=== PATIENT | male | born 1955 | race Two or more races ===

== ENCOUNTER 2017-03-15 09:42 | Inpatient (IN) | payer MEDICARE, OTHER ==
[~2017-03-15] VITALS: Ht 170.2 cm; Wt 135.0 kg
[2017-03-15] VITALS (33 sets, daily range): BP systolic 78–128; BP diastolic 37–88; PULSE 60–72; RESP 11–23; Ht 170.2 cm; Wt 135.0 kg
--- NOTE | 2017-03-15 04:54 | HP ---
DATE OF ADMISSION: 03/15/2017 HISTORY OF PRESENT ILLNESS: The patient is a 62-year-old male who was originally seen in the office for evaluation of low back pain and going to the hip and on into the lower extremity. The patient with L2-L3 spondylosis with mechanical low back pain . Conservative management in the family of epidural injections, physical therapy, and pain management. Unfortunately, the patient has failed, his condition is getting worse, his pain has been getting more. The patient wanted something more definitive to be done. The only option left at that point was for surgical intervention in the form of L2-L3 lumbar laminectomy with fusion and instrumentation with a posterolateral and interbody fusion. The procedure was described to the patient in great detail. Complications were explained. The patient wanted to proceed with surgery. PAST MEDICAL HISTORY: Paroxysmal atrial fibrillation, hypertension. PAST SURGICAL HISTORY: Lumbar spine surgery in 2015, right hip replacement in 2013, Lap-Band surgery in 2006. ALLERGIES: NO KNOWN DRUG ALLERGIES. MEDICATIONS: Medications taken at home, please refer to chart. SOCIAL HISTORY: Denies either drugs, alcohol or tobacco. FAMILY HISTORY: Unremarkable. REVIEW OF SYSTEMS: Additional 10-point review of systems conducted and pertinent positive being as described above. PHYSICAL EXAMINATION: GENERAL APPEARANCE: The patient is awake, alert, and oriented. VITAL SIGNS: Stable. HEENT: Head is atraumatic, normocephalic. Scleral nonicteric. EOMs intact. Pupils are reactive, no cyanosis. Mouth no lesions, no bleeding. NECK: Supple. No thyromegaly, no JVD, no accessory muscle use. CARDIOVASCULAR: No JVD, no pedal edema. ABDOMEN: Soft with bowel sounds audible. NEUROLOGIC: GCS 15. Cranial nerves intact. On upper extremity examination, he moves both sides equally. On lower extremity exam on flexion and extension of lumbar spine, he has severe lower back pain. The patient also has difficulty with range of motion of the hips, as well as the knees. He has ankle flexion and extension intact on both sides. Strength is equal on both sides, sensation is intact. DATA: MRI of the lumbar spine dated 12/05/2016 shows L2-L3 spondylosis with disc herniation. ASSESSMENT AND PLAN: Recommendation is for the patient to have L2-L3 lumbar laminectomy with fusion and instrumentation. The procedure was described to the patient in great detail. Complications were explained to the patient in great detail. The patient has agreed and wants to go ahead and proceed with intervention and will be admitted to the hospital thereafter post surgery for further care and management. Dictated By: Raimundo Vaughan MD /henrietta/sadaf /Document#: [id number]
[~2017-03-15 09:42] MED LIST: BLOOD PRESSURE PO; IBUP200C11 PO
[2017-03-15] MEDS ORDERED: THROMBIN 5000 UNIT VIAL ONE ×2 (10:05→14:32)
[2017-03-15] MEDS ORDERED: POLYMYXIN/BACITRACIN 1L IRRIG ONE (10:05)
[2017-03-15] MEDS ORDERED: GELATIN SIZE 100 SPONGE ONE ×2 (10:05→14:32)
[2017-03-15] MEDS ORDERED: LIDOCAINE 0.5% (MDV) 50 ML INJ ONE (10:05)
[2017-03-15] MEDS ORDERED: BUPIVACAINE 0.5%/EPI (SDV) 10 ML INJ ONE (10:12)
[2017-03-15] MEDS ORDERED: MAXZ25 PO (10:55)
[2017-03-15] MEDS ORDERED: METO-448 PO (10:56)
[2017-03-15] MEDS ORDERED: LOSA100T7 PO (10:56)
[2017-03-15] MEDS ORDERED: LIDOCAINE 2%/EPI 30 ML INJ ONE (11:15)
[2017-03-15] MEDS ORDERED: SUCCINYLCHOLINE CHLORIDE 100 MG/5 ML SYG IV ONE (12:18)
[2017-03-15] MEDS ORDERED: GLYCOPYRROLATE 0.4 MG INJ ONE ×3 (12:18→13:10)
[2017-03-15] MEDS ORDERED: MEPERIDINE 100 MG INJ ONE (12:18)
[2017-03-15] MEDS ORDERED: PROPOFOL 20 ML ONE (12:18)
[2017-03-15] MEDS ORDERED: NEOSTIGMINE 3 MG/3 ML SYRINGE ONE ×2 (12:18→13:11)
[2017-03-15] MEDS ORDERED: LIDOCAINE 2% (SDV) 5 ML INJ ONE (12:18)
[2017-03-15] MEDS ORDERED: ROCURONIUM 50 MG INJ ONE ×2 (12:18→13:15)
[2017-03-15] MEDS: DEXTROSE 5%-LR 1,000 ML IV SCH (12:30)
[2017-03-15] MEDS ORDERED: ACETAMINOPHEN 325 MG TAB PO PRN (12:30)
[2017-03-15] MEDS ORDERED: niCARdipine 50 MG in SOD CHLORIDE 0.9% 480 ML IV PRN (12:30)
[2017-03-15] MEDS ORDERED: ONDANSETRON 4 MG INJ IV PRN ×2 (12:30→15:30)
[2017-03-15] MEDS: CEFAZOLIN 1 GM/50 ML (PMX) 50 ML IVPB SCH (14:00)
[2017-03-15] MEDS ORDERED: ONDANSETRON 4 MG INJ ONE (14:49)
--- NOTE | 2017-03-15 14:58 | OPR ---
Date/Time of Note Date/Time of Note DATE: 03/15/17 TIME: 14:55 Operative Report Procedure Date: Mar 15, 2017 Preoperative Diagnosis LUMBAR SPONDYLOLISTHESIS AND STENOSIS AND CORD COMPRESSION L3-4 Postoperative Diagnosis SAME Operation Performed LUMBAR THREE FOUR LAMINECTOMY WITH INTERBODY FUSION AND PEDICLE SCREW INSTRUMENTATION AND POSTERIOR LATERAL FUSION, 360 FUSION Surgeon: CHRISTOPHER MCKINNEY MD Survey Workers Supervisor: CAMERON COOPER PA-C Anesthesia Type: general Anesthesiologist: SALINA SALAS MD Estimated Blood Loss: 250 - 300 ml's Transfusion Required: no Specimens DISC OF L3-4 Tubes/Drains HEMOVAC DRAIN CHRISTOPHER MCKINNEY MD Mar 15, 2017 14:58
[2017-03-15] MEDS ORDERED: KETOROLAC 30 MG INJ IV PRN (15:30)
[2017-03-15] MEDS ORDERED: DIPHENHYDRAMINE 50 MG INJ IV PRN (15:30)
[2017-03-15] MEDS ORDERED: NALOXONE (0.4 MG/ML) INJ IV PRN (15:30)
[2017-03-15] MEDS: morphine 1 MG/ML 30 ML (PCA) IV PRN (16:26)
--- NOTE | 2017-03-15 16:43 | RADRPT ---
PROCEDURE: Intraoperative imaging of the lumbar spine with fluoroscopy. CLINICAL INDICATION: Back pain. Intraoperative. TECHNIQUE: 8 images of the lumbar spine were obtained in the operating room with an image intensif ier. No radiologist was in attendance. Fluoroscopy time is 28.5 seconds. COMPARISON: No prior study is available for comparison. FINDINGS: For the purposes of this report, the last apparent true disc level is considered to be L5-S1. Based on this, images demonstrate placement of a pedicle screws at L2, L3, and L4 with connecting rods. Intervertebral cages are present at L2-3 and L3-4. IMPRESSION: 1. Intraoperative imaging of the lumbar spine. RPTAT: QQ .Saulo Yadav MD, Date Time Electronically viewed and signed by .Saulo Yadav MD, on 03/15/2017 16:43 .R/
[2017-03-15] MEDS ORDERED: hydrALAzine 20 MG INJ IV PRN (17:30)
--- NOTE | 2017-03-15 20:06 | HP ---
DATE OF ADMISSION: 03/15/2017 HISTORY OF PRESENT ILLNESS: The patient is a 62-year-old gentleman with history hypertension, atrial fibrillation, and history of diverticulitis. The patient was seen by Dr. Vaughan for lower back pain, which was radiating to the hips and lower extremities. Conservative management with epidural injection, physical therapy and pain management unfortunately failed. The patient was diagnosed with spinal stenosis of L3 and 4 and was brought to the hospital and underwent microdissection of L3 and 4, post lumbar laminectomy with interbody fusion and instrumentation of L3 and L4. Postoperatively the patient experienced moderate pain and patient will be admitted for further evaluation and management. PAST MEDICAL HISTORY: Positive for hypertension, paroxysmal atrial fibrillation, and obesity. PAST SURGERY HISTORY: Hemicolectomy, subsequent colostomy and subsequent reversal of colostomy for acute diverticulitis. Lap band surgery in 2006. Right hip replacement surgery in 2013. Status post fusion and instrumentation of L2 on L3 with L2 and L3 spondylosis in August 2015. FAMILY HISTORY: The patient's brother at age of 81 with history of coronary artery disease. SOCIAL HISTORY: The patient is a former smoker, smoked for 30 years, quit in . The patient denies illicit drug use. Patient is a social drinker, drinks alcohol occasionally. ALLERGIES: NO KNOWN ALLERGIES. HOME MEDICATIONS: Cozaar, metoprolol, triamterene, hydrochlorothiazide, and Eliquis, which is held for surgery. REVIEW OF SYSTEMS: Twelve point review of system is negative unless what is mentioned in HPI. PHYSICAL EXAMINATION: GENERAL: Well developed, obese gentleman, currently is awake and alert. VITAL SIGNS: Temperature is 98.1, pulse is 66, blood pressure 92/48, respiratory rate 14, and oxygen saturation 100 percent on 2 L nasal cannula. HEENT: Head is atraumatic, normocephalic. Pupils equal, round, reactive to light and accommodation. Oral mucosa is pink and moist. NECK: Supple. No cervical lymphadenopathy. No thyromegaly. CHEST: Lungs clear bilaterally. There is no rhonchi, wheezes, rales noted. CARDIOVASCULAR: Normal S1, S2. No murmurs, gallops, clicks, or rubs noted. ABDOMEN: Protuberant, soft, nondistended, nontender. BACK: Status post surgery with a dry clean surgical incision and the surgical drain. EXTREMITIES: No edema, clubbing, cyanosis. Pulses equal bilaterally 2 plus. SKIN: No rash. No petechiae noted. NEUROLOGICAL: Patient is awake, alert, and oriented times 4. LABORATORY DATA: Prior to surgery, white blood cells 6.2, hemoglobin 13.8, hematocrit 41.1, and platelets 231. Chemistry, sodium was 141, potassium 3.8, chloride 105, calcium is 9.6, BUN is 15, creatinine 0.8, and glucose is 92. Chest x-ray prior to surgery, the lungs are clear. The heart size is normal. ASSESSMENT AND PLAN: 1. Lumbar spondylolisthesis, stenosis and cord compression at L3-L4, status post lumbar L3-4 laminectomy with interbody fusion and instrumentation by Dr. Vaughan. We will continue Percocet and [place] p.r.n. for pain and Zofran p.r.n. for nausea. Continue cefazolin antibiotics. Continue to follow up surgical recommendation. 2. Hypertension. Patient is currently hypotensive. Continue to monitor blood pressure. Hydralazine p.r.n. for systolic blood pressure above 170. 3. Paroxysmal atrial fibrillation. Currently is in a normal sinus rhythm. Continue to monitor. The patient was on Eliquis, which was held in advance for scheduled surgery. 4. Obesity with BMI of 46. We will continue sequential compression device for deep venous thrombosis prophylaxis and Pepcid 5. for peptic ulcer disease prophylaxis. Further recommendations based on clinical course. Plan of care discussed with Dr. Hogue. Dictated By: Racheal Huerta NP /henrietta/elisha /Document#: [id number]
[2017-03-16] VITALS (13 sets, daily range): BP systolic 94–112; BP diastolic 58–81; PULSE 69–85; RESP 17–19
[2017-03-16] MEDS: CEFAZOLIN 1 GM/50 ML (PMX) 50 ML IVPB SCH ×3 (00:05→13:43)
[2017-03-16] MEDS: DEXTROSE 5%-LR 1,000 ML IV SCH ×2 (01:00→13:47)
[2017-03-16 07:04] LABS: BASOPHIL # 0.1 10^3/ul (0.0-0.1); BASOPHILS % 0.6 % (0.0-2.0); EOSINOPHILS # 0.2 10^3/ul (0.0-0.5); EOSINOPHILS % 1.9 % (0.0-7.0); HEMATOCRIT 34.8 % (42.0-52.0); HEMOGLOBIN 11.4 g/dl (14.0-18.0); LYMPHOCYTES # 1.1 10^3/ul (0.8-2.9); LYMPHOCYTES % 10.6 % (15.0-51.0); MEAN CORPUSCULAR HGB CONC 32.8 g/dl (32.0-37.0); MEAN CORPUSCULAR VOLUME 91.6 fl (82.0-101.0); MEAN PLATELET VOLUME 11.2 fl (7.4-10.4); MONOCYTES % 10.3 % (0.0-11.0); NEUTROPHILS % 76.3 % (39.0-77.0); PLATELET COUNT 186 10^3/UL (140-415); RED CELL DISTRIBUTION WIDTH 13.9 % (11.5-14.5); WHITE BLOOD COUNT 9.9 10^3/ul (4.8-10.8)
[2017-03-16 07:32] LABS: CALCIUM 8.5 mg/dl (8.4-10.2); CREATININE 0.89 mg/dl (0.61-1.24); POTASSIUM 3.8 mmol/L (3.5-5.1)
[2017-03-16] MEDS: morphine 1 MG/ML 30 ML (PCA) IV PRN (08:45)
[2017-03-16] MEDS: METOPROLOL 25 MG TAB PO SCH ×2 (08:48→21:00)
[2017-03-16] MEDS: FAMOTIDINE 20 MG TAB PO SCH (09:28)
[2017-03-16] MEDS ORDERED: morphine 1 MG/ML 30 ML (PCA) IV PRN (15:30)
--- NOTE | 2017-03-16 15:57 | CONS ---
Date/Time of Note Date/Time of Note DATE: 03/16/17 TIME: 15:56 Assessment/Plan Assessment/Plan Additional Assessment/Plan seen/examined awake/alert/follows/moves all able to ambulate with pt sp l3-4 laminectomy with fusion/instrumentation to add to level above lumbar corsett pending drain still functional pt/ot with corsett on dc fole cath in am advance diet Consultation Date/Type/Reason Admit Date/Time Mar 15, 2017 at 09:42 Initial Consult Date Exam/Review of Systems Vital Signs Vitals Vital Signs Date Time Temp Pulse Resp B/P Pulse Ox O2 Delivery O2 Flow Rate FiO2 03/16/17 15:23 98.5 85 17 107/66 96 03/16/17 09:15 Nasal Cannula 2.0 Intake and Output 03/15/17 03/15/17 03/16/17 15:00 23:00 07:00 Intake Total 2800 ml 800 ml Output Total 425 ml 1330 ml Balance 2375 ml -530 ml Results Result Diagram: 03/16/17 0614 03/16/17 0614 Results 24 hrs Laboratory Tests Test 03/16/17 06:14 White Blood Count 9.9 Red Blood Count 3.80 L Hemoglobin 11.4 L Hematocrit 34.8 L Mean Corpuscular Volume 91.6 Mean Corpuscular Hemoglobin 30.0 Mean Corpuscular Hemoglobin Concent 32.8 Red Cell Distribution Width 13.9 Platelet Count 186 Mean Platelet Volume 11.2 H Neutrophils % 76.3 Lymphocytes % 10.6 L Monocytes % 10.3 Eosinophils % 1.9 Basophils % 0.6 Nucleated Red Blood Cells % 0.0 Neutrophils # (Manual) 8 H Lymphocytes # 1.1 Monocytes # 1.0 H Eosinophils # 0.2 Basophils # 0.1 Nucleated Red Blood Cells # 0.0 Sodium Level 139 Potassium Level 3.8 Chloride Level 102 Carbon Dioxide Level 29 Anion Gap 12 Blood Urea Nitrogen 13 Creatinine 0.89 Glucose Level 108 Calcium Level 8.5 Medications Medications Current Medications Dextrose/Lactated Ringer's (D5-Lr) 1,000 ml @ 80 mls/hr [id number] IV Last administered on 03/16/17t 13:47; Admin Dose 80 MLS/HR; Start 03/15/17 at 12:30 Ondansetron HCl (Zofran Inj) 4 mg Q6H PRN IV NAUSEA AND/OR VOMITING; Start at 12:30 Acetaminophen (Tylenol Tab) 650 mg Q6H PRN PO PAIN AND OR ELEVATED TEMP; Start 03/15/17 at 12:30 Naloxone HCl (Narcan) 0.2 mg PRN PRN IV DECREASED REPIRATORY RATE; Start at 15:30 Oxycodone/ Acetaminophen (Percocet (5/ 325)) 1 tab Q4H PRN PO PAIN LEVEL 1-5; Start 03/15/17 at 15:30 Oxycodone/ Acetaminophen (Percocet (5/ 325)) 2 tab Q4H PRN PO PAIN LEVEL 6-10; Start 03/15/17 at 15:30 Ketorolac Tromethamine (Toradol) 30 mg Q6H PRN IV PAIN UNRELIEVED BY IV NARCOTIC Last administered on 03/15/17 17:00; Admin Dose 30 MG; Start 03/15/17 at 15:30; Stop 03/18/17 at 15:29 Ondansetron HCl (Zofran Inj) 4 mg Q6H PRN IV NAUSEA AND/OR VOMITING; Start at 15:30 Diphenhydramine HCl (Benadryl) 25 mg Q6H PRN IV ITCHING; Start 03/15/17 at 15: 30 Miscellaneous Information 1. 24 hours after SOFTWARE CONFIGURATION SPECIALIST st... SOFTWARE CONFIGURATION SPECIALIST IV ; Start 03/15/17 at 15:30 Miscellaneous Information 1. Discontinue SOFTWARE CONFIGURATION SPECIALIST... SOFTWARE CONFIGURATION SPECIALIST IV ; Start 03/15/17 at 15:30 Famotidine (Pepcid) 20 mg DAILY PO Last administered on 03/16/17 09:28; Admin Dose 20 MG; Start 03/16/17 at 09:00 Hydralazine HCl (Apresoline) 10 mg Q6H PRN IV SBP>170; Start 03/15/17 at 17:30 Metoprolol Tartrate (Lopressor) 25 mg BID PO ; Start 03/16/17 at 09:00 Morphine Sulfate (morphine) Q4PCA PRN IV Pain; Start 03/16/17 at 15:30 CAMERON COOPER PA-C Mar 16, 2017 15:57
--- NOTE | 2017-03-16 17:24 | PN ---
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 Problems: Assessment/Plan -Lumbar spondylolisthesis, stenosis and cord compression at L3-L4, status post lumbar L3-4 laminectomy with interbody fusion and instrumentation by Dr. Vaughan. Continue morphine CHRONIC DISEASE MANAGER p.r.n. for pain and Zofran p.r.n. for nausea. Continue to follow up surgical recommendation. - Hypertension. Patient is currently hypotensive. Continue to monitor blood pressure. Hydralazine p.r.n. -Paroxysmal atrial fibrillation. Currently is in a normal sinus rhythm. Continue to monitor. The patient was on Eliquis, which was held in advance for scheduled surgery. - Obesity with BMI of 46. Further recommendations based on clinical course. Plan of care discussed with Dr. Hogue. Exam/Review of Systems Vital Signs Vitals Vital Signs Date Time Temp Pulse Resp B/P Pulse Ox O2 Delivery O2 Flow Rate FiO2 03/16/17 16:15 83 03/16/17 15:23 98.5 17 107/66 96 03/16/17 09:15 Nasal Cannula 2.0 Intake and Output 03/15/17 03/15/17 03/16/17 15:00 23:00 07:00 Intake Total 2800 ml 800 ml Output Total 425 ml 1330 ml Balance 2375 ml -530 ml Exam Constitutional: alert, oriented Head: normocephalic Neck: supple Respiratory: normal air movement Cardiovascular: nl pulses Gastrointestinal: non-tender, soft Musculoskeletal: other (Low back status post surgery) Extremities: normal pulses Neurological: nl mental status Results Result Diagram: 03/16/17 0614 03/16/17 0614 Results 24 hrs Laboratory Tests Test 03/16/17 06:14 White Blood Count 9.9 Red Blood Count 3.80 L Hemoglobin 11.4 L Hematocrit 34.8 L Mean Corpuscular Volume 91.6 Mean Corpuscular Hemoglobin 30.0 Mean Corpuscular Hemoglobin Concent 32.8 Red Cell Distribution Width 13.9 Platelet Count 186 Mean Platelet Volume 11.2 H Neutrophils % 76.3 Lymphocytes % 10.6 L Monocytes % 10.3 Eosinophils % 1.9 Basophils % 0.6 Nucleated Red Blood Cells % 0.0 Neutrophils # (Manual) 8 H Lymphocytes # 1.1 Monocytes # 1.0 H Eosinophils # 0.2 Basophils # 0.1 Nucleated Red Blood Cells # 0.0 Sodium Level 139 Potassium Level 3.8 Chloride Level 102 Carbon Dioxide Level 29 Anion Gap 12 Blood Urea Nitrogen 13 Creatinine 0.89 Glucose Level 108 Calcium Level 8.5 Medications Medications Current Medications Dextrose/Lactated Ringer's (D5-Lr) 1,000 ml @ 80 mls/hr [id number] IV Last administered on 03/16/17 13:47; Admin Dose 80 MLS/HR; Start 03/15/17 at 12:30 Ondansetron HCl (Zofran Inj) 4 mg Q6H PRN IV NAUSEA AND/OR VOMITING; Start at 12:30 Acetaminophen (Tylenol Tab) 650 mg Q6H PRN PO PAIN AND OR ELEVATED TEMP; Start 03/15/17 at 12:30 Naloxone HCl (Narcan) 0.2 mg PRN PRN IV DECREASED REPIRATORY RATE; Start at 15:30 Oxycodone/ Acetaminophen (Percocet (5/ 325)) 1 tab Q4H PRN PO PAIN LEVEL 1-5; Start 03/15/17 at 15:30 Oxycodone/ Acetaminophen (Percocet (5/ 325)) 2 tab Q4H PRN PO PAIN LEVEL 6-10; Start 03/15/17 at 15:30 Ketorolac Tromethamine (Toradol) 30 mg Q6H PRN IV PAIN UNRELIEVED BY IV NARCOTIC Last administered on 03/15/17 17:00; Admin Dose 30 MG; Start 03/15/17 at 15:30; Stop 03/18/17 at 15:29 Ondansetron HCl (Zofran Inj) 4 mg Q6H PRN IV NAUSEA AND/OR VOMITING; Start at 15:30 Diphenhydramine HCl (Benadryl) 25 mg Q6H PRN IV ITCHING; Start 03/15/17 at 15: 30 Miscellaneous Information 1. 24 hours after CHRONIC DISEASE MANAGER st... CHRONIC DISEASE MANAGER IV ; Start 03/15/17 at 15:30 Miscellaneous Information 1. Discontinue CHRONIC DISEASE MANAGER... CHRONIC DISEASE MANAGER IV ; Start 03/15/17 at 15:30 Famotidine (Pepcid) 20 mg DAILY PO Last administered on 03/16/17t 09:28; Admin Dose 20 MG; Start 03/16/17 at 09:00 Hydralazine HCl (Apresoline) 10 mg Q6H PRN IV SBP>170; Start 03/15/17 at 17:30 Metoprolol Tartrate (Lopressor) 25 mg BID PO ; Start 03/16/17 at 09:00 Morphine Sulfate (morphine) Q4PCA PRN IV Pain; Start 03/16/17 at 15:30 BONNIE SNIDER Mar 16, 2017 17:23
[2017-03-17] VITALS (12 sets, daily range): BP systolic 95–113; BP diastolic 50–68; PULSE 71–92; RESP 17–20
[2017-03-17] MEDS: DEXTROSE 5%-LR 1,000 ML IV SCH ×2 (03:05→14:21)
[2017-03-17 07:04] LABS: BASOPHIL # 0.1 10^3/ul (0.0-0.1); BASOPHILS % 0.6 % (0.0-2.0); EOSINOPHILS # 0.2 10^3/ul (0.0-0.5); EOSINOPHILS % 2.7 % (0.0-7.0); HEMATOCRIT 31.4 % (42.0-52.0); HEMOGLOBIN 10.5 g/dl (14.0-18.0); LYMPHOCYTES # 1.4 10^3/ul (0.8-2.9); LYMPHOCYTES % 16.4 % (15.0-51.0); MEAN CORPUSCULAR HEMOGLOBIN 30.5 pg (29.0-33.0); MEAN CORPUSCULAR HGB CONC 33.4 g/dl (32.0-37.0); MEAN CORPUSCULAR VOLUME 91.3 fl (82.0-101.0); MEAN PLATELET VOLUME 11.2 fl (7.4-10.4); MONOCYTE # 1.4 10^3/ul (0.3-0.9); MONOCYTES % 15.7 % (0.0-11.0); NEUTROPHILS % 64.3 % (39.0-77.0); PLATELET COUNT 171 10^3/UL (140-415); RED BLOOD COUNT 3.44 10^6/ul (4.70-6.10); RED CELL DISTRIBUTION WIDTH 13.7 % (11.5-14.5); WHITE BLOOD COUNT 8.8 10^3/ul (4.8-10.8)
--- NOTE | 2017-03-17 07:10 | OPR ---
DATE OF OPERATION: 03/16/2017 PREOPERATIVE DIAGNOSIS: 1. L2 through L4 lumbar mechanical low back pain. 2. Unstable lumbar spine L2-L3 fusion with instrumentation. POSTOPERATIVE DIAGNOSIS: 1. L2 through L4 lumbar mechanical low back pain. 2. Unstable lumbar spine L2-L3 fusion with instrumentation. 3. Grade 1 retrolisthesis L3 over L4. SURGEON: Raimundo Vaughan MD WIND FIELD SERVICE MANAGER: Isai Rizvi PA-C COMPLICATIONS: None. ANESTHESIA: General endotracheal. ESTIMATED BLOOD LOSS: Less than 300. COUNTS: Needle counts, sponge counts correct. SPECIMENS: Fragments of the lamina were sent to pathology. INDICATIONS FOR OPERATION: The patient is status post L2-L3 fusion, now there is evidence of retrolisthesis of L3 over L4, there is severe cord compression, there is canal stenosis. The patient is having back pain and leg pain, difficulty walking. We will proceed with lumbar laminectomy at the level of L3-4 with fusion, instrumentation at L3-4 with interbody fusion and posterolateral fusion. The risks and benefits of the operation was explained to the patient. Patient agreed to proceed with the operation and signed the consent. OPERATION PERFORMED: 1. L3-L4 posterolateral fusion (CPT 09144). 2. L3 bilateral laminectomy, medial fasciotomy, and foraminotomy (CPT 56451). 3. L4 bilateral laminectomy, medial fasciotomy, and foraminotomy (CPT 92784). 4. L3-L4 instrumentation with connection of the instrumentation to the L2-3 instrumentation utilizing pedicle screw instrumentation by [employer] system (CPT 49172). 5. L3-L4 interbody fusion utilizing allograft for interbody fusion with stabilization of the lumbar anterior column (CPT 97890). PROCEDURE IN DETAIL: The patient was placed supine position. General endotracheal anesthesia was obtained. Patient was turned prone on vertical bolsters until adequate lumbar position was . The fascia was infiltrated with lidocaine with epinephrine solution. Incision was made. Old incision was opened. Instrumentation and hardware at L2-3 was identified. The L3 lamina and L4 lamina were identified. Laminectomy of L4 was done. At level of L3-4 there was clear evidence of instability. There was facet hypertrophy. The transverse process of L3 and the transverse process of L4 was identified. After complete laminectomy of L3-4, I placed interbody fusion at level of L3-4 after the disc was completely removed. On the right side, there was a massive disk herniation causing severe stenosis of neural foramina. Spinal monitoring showed improvement of signal after complete discectomy. PLIF were placed at the level of the L3-4 bilaterally. A total of 2 of them, each of them 30 mm long was placed. Following that, 6 x 45 screws were placed at the level of the L4 pedicle utilizing fluoroscopy and pedicle screw stimulation. An 80 mm willa and an 85 mm willa were loaded onto the pedicle screws of L4 and L3 and L2 after the old rods were removed. Everything was torque tight a total of 6 new caps. Following that, 10 mL of demineralized bone matrix putty was mixed with bone that was harvested during the laminectomy. It was ground up with a steam bone press tender. Following that, the bone was placed as an onlay graft at L3-4 transverse process after the transverse processes were completely decorticated. Medium size Hemovac drain was placed in the wound after all the bleeding in the epidural space. Closure of the wound was done with number 1 Vicryl for lumbar dorsal fascia, 2-0 and 3-0 Vicryl for subcutaneous tissue and for the skin. The patient tolerated the procedure well, was taken to post anesthesia recovery in stable condition, following commands, moving all musculature of the upper and lower extremities. Dictated By: Raimundo Vaughan MD /henrietta/joaquín /Document#: [id number] MARIA A
[2017-03-17 07:20] LABS: CALCIUM 8.4 mg/dl (8.4-10.2); CREATININE 0.71 mg/dl (0.61-1.24); POTASSIUM 3.5 mmol/L (3.5-5.1)
[2017-03-17] MEDS: METOPROLOL 25 MG TAB PO SCH ×2 (08:23→21:00)
[2017-03-17] MEDS: FAMOTIDINE 20 MG TAB PO SCH (08:27)
--- NOTE | 2017-03-17 14:53 | PN ---
Date/Time of Note Date/Time of Note DATE: 03/17/17 TIME: 14:51 Assessment/Plan VTE Prophylaxis VTE Prophylaxis Intervention: SCD's Lines/Catheters IV Catheter Type (from Nrsg): Peripheral IV Urinary Cath still in place: No Assessment/Plan Chief Complaint/Hosp Course Patient stated decrease in lower back pain, able to work with physical therapy, borderline blood pressure, denies any fever. Continue telemetry monitoring. Assessment/Plan -Lumbar spondylolisthesis, stenosis and cord compression at L3-L4, status post lumbar L3-4 laminectomy with interbody fusion and instrumentation by Dr. Vaughan. Continue morphine NEW CAR GET READY MECHANIC p.r.n. for pain and Zofran p.r.n. for nausea. Continue to follow up surgical recommendation. - Hypertension. Patient is currently hypotensive. Continue to monitor blood pressure. Hydralazine p.r.n. -Paroxysmal atrial fibrillation. Currently is in a normal sinus rhythm. Continue to monitor. The patient was on Eliquis, which was held in advance for scheduled surgery. - Obesity with BMI of 46. Further recommendations based on clinical course. Plan of care discussed with Dr. Hogue. Problems: Exam/Review of Systems Vital Signs Vitals Vital Signs Date Time Temp Pulse Resp B/P Pulse Ox O2 Delivery O2 Flow Rate FiO2 03/17/17 12:07 80 03/17/17 11:00 98.2 20 102/60 95 03/16/17 20:38 Nasal Cannula 2.0 Intake and Output 03/16/17 03/16/17 03/17/17 15:00 23:00 07:00 Intake Total 1240 ml 600 ml Output Total 1775 ml 2350 ml Balance -535 ml -1750 ml Results Result Diagram: 03/17/17 0615 03/17/17 0615 Results 24 hrs Laboratory Tests Test 03/17/17 06:15 White Blood Count 8.8 Red Blood Count 3.44 L Hemoglobin 10.5 L Hematocrit 31.4 L Mean Corpuscular Volume 91.3 Mean Corpuscular Hemoglobin 30.5 Mean Corpuscular Hemoglobin Concent 33.4 Red Cell Distribution Width 13.7 Platelet Count 171 Mean Platelet Volume 11.2 H Neutrophils % 64.3 Lymphocytes % 16.4 Monocytes % 15.7 H Eosinophils % 2.7 Basophils % 0.6 Nucleated Red Blood Cells % 0.0 Neutrophils # (Manual) 6 Lymphocytes # 1.4 Monocytes # 1.4 H Eosinophils # 0.2 Basophils # 0.1 Nucleated Red Blood Cells # 0.0 Sodium Level 139 Potassium Level 3.5 Chloride Level 98 Carbon Dioxide Level 31 Anion Gap 14 Blood Urea Nitrogen 8 Creatinine 0.71 Glucose Level 113 Calcium Level 8.4 Medications Medications Current Medications Dextrose/Lactated Ringer's (D5-Lr) 1,000 ml @ 80 mls/hr [id number] IV Last administered on 03/17/17 14:21; Admin Dose 80 MLS/HR; Start 03/15/17 at 12:30 Ondansetron HCl (Zofran Inj) 4 mg Q6H PRN IV NAUSEA AND/OR VOMITING; Start at 12:30 Acetaminophen (Tylenol Tab) 650 mg Q6H PRN PO PAIN AND OR ELEVATED TEMP; Start 03/15/17 at 12:30 Naloxone HCl (Narcan) 0.2 mg PRN PRN IV DECREASED REPIRATORY RATE; Start at 15:30 Oxycodone/ Acetaminophen (Percocet (5/ 325)) 1 tab Q4H PRN PO PAIN LEVEL 1-5; Start 03/15/17 at 15:30 Oxycodone/ Acetaminophen (Percocet (5/ 325)) 2 tab Q4H PRN PO PAIN LEVEL 6-10; Start 03/15/17 at 15:30 Ketorolac Tromethamine (Toradol) 30 mg Q6H PRN IV PAIN UNRELIEVED BY IV NARCOTIC Last administered on 03/15/17 17:00; Admin Dose 30 MG; Start 03/15/17 at 15:30; Stop 03/18/17 at 15:29 Ondansetron HCl (Zofran Inj) 4 mg Q6H PRN IV NAUSEA AND/OR VOMITING; Start at 15:30 Diphenhydramine HCl (Benadryl) 25 mg Q6H PRN IV ITCHING; Start 03/15/17 at 15: 30 Miscellaneous Information 1. 24 hours after NEW CAR GET READY MECHANIC st... NEW CAR GET READY MECHANIC IV ; Start 03/15/17 at 15:30 Miscellaneous Information 1. Discontinue NEW CAR GET READY MECHANIC... NEW CAR GET READY MECHANIC IV ; Start 03/15/17 at 15:30 Famotidine (Pepcid) 20 mg DAILY PO Last administered on 03/17/17 08:27; Admin Dose 20 MG; Start 03/16/17 at 09:00 Hydralazine HCl (Apresoline) 10 mg Q6H PRN IV SBP>170; Start 03/15/17 at 17:30 Metoprolol Tartrate (Lopressor) 25 mg BID PO ; Start 03/16/17 at 09:00 Morphine Sulfate (morphine) Q4PCA PRN IV Pain Last administered on 03/17/17 00:42; Admin Dose 1 MG; Start 03/16/17 at 15:30 BONNIE SNIDER Mar 17, 2017 14:53
--- NOTE | 2017-03-17 16:08 | CONS ---
Date/Time of Note Date/Time of Note DATE: 03/17/17 TIME: 16:06 Assessment/Plan Assessment/Plan Additional Assessment/Plan seen/examined awake/alert/moves all feels better today hemovac with 125cc overnight, will leave drain in for another 24hrs pain better ambulation better\ wearing lumbar corsett dc levelman, order morphine push prn miralax. Consultation Date/Type/Reason Admit Date/Time Mar 15, 2017 at 09:42 Exam/Review of Systems Vital Signs Vitals Vital Signs Date Time Temp Pulse Resp B/P Pulse Ox O2 Delivery O2 Flow Rate FiO2 03/17/17 15:00 98.2 89 19 95/60 95 03/16/17 20:38 Nasal Cannula 2.0 Intake and Output 03/16/17 03/16/17 03/17/17 15:00 23:00 07:00 Intake Total 1240 ml 600 ml Output Total 1775 ml 2350 ml Balance -535 ml -1750 ml Results Result Diagram: 03/17/17 0615 03/17/17 0615 Results 24 hrs Laboratory Tests Test 03/17/17 06:15 White Blood Count 8.8 Red Blood Count 3.44 L Hemoglobin 10.5 L Hematocrit 31.4 L Mean Corpuscular Volume 91.3 Mean Corpuscular Hemoglobin 30.5 Mean Corpuscular Hemoglobin Concent 33.4 Red Cell Distribution Width 13.7 Platelet Count 171 Mean Platelet Volume 11.2 H Neutrophils % 64.3 Lymphocytes % 16.4 Monocytes % 15.7 H Eosinophils % 2.7 Basophils % 0.6 Nucleated Red Blood Cells % 0.0 Neutrophils # (Manual) 6 Lymphocytes # 1.4 Monocytes # 1.4 H Eosinophils # 0.2 Basophils # 0.1 Nucleated Red Blood Cells # 0.0 Sodium Level 139 Potassium Level 3.5 Chloride Level 98 Carbon Dioxide Level 31 Anion Gap 14 Blood Urea Nitrogen 8 Creatinine 0.71 Glucose Level 113 Calcium Level 8.4 Medications Medications Current Medications Dextrose/Lactated Ringer's (D5-Lr) 1,000 ml @ 80 mls/hr [id number] IV Last administered on 03/17/17t 14:21; Admin Dose 80 MLS/HR; Start 03/15/17 at 12:30 Ondansetron HCl (Zofran Inj) 4 mg Q6H PRN IV NAUSEA AND/OR VOMITING; Start at 12:30 Acetaminophen (Tylenol Tab) 650 mg Q6H PRN PO PAIN AND OR ELEVATED TEMP; Start 03/15/17 at 12:30 Naloxone HCl (Narcan) 0.2 mg PRN PRN IV DECREASED REPIRATORY RATE; Start at 15:30 Oxycodone/ Acetaminophen (Percocet (5/ 325)) 1 tab Q4H PRN PO PAIN LEVEL 1-5; Start 03/15/17 at 15:30 Oxycodone/ Acetaminophen (Percocet (5/ 325)) 2 tab Q4H PRN PO PAIN LEVEL 6-10; Start 03/15/17 at 15:30 Ketorolac Tromethamine (Toradol) 30 mg Q6H PRN IV PAIN UNRELIEVED BY IV NARCOTIC Last administered on 03/15/17 17:00; Admin Dose 30 MG; Start 03/15/17 at 15:30; Stop 03/18/17 at 15:29 Ondansetron HCl (Zofran Inj) 4 mg Q6H PRN IV NAUSEA AND/OR VOMITING; Start at 15:30 Diphenhydramine HCl (Benadryl) 25 mg Q6H PRN IV ITCHING; Start 03/15/17 at 15: 30 Miscellaneous Information 1. 24 hours after [address] ASSISTANT [address]... RECREATIONAL ASSISTANT IV ; Start 03/15/17 at 15:30 Miscellaneous Information 1. Discontinue RECREATIONAL ASSISTANT... RECREATIONAL ASSISTANT IV ; Start 03/15/17 at 15:30 Famotidine (Pepcid) 20 mg DAILY PO Last administered on 03/17/17 08:27; Admin Dose 20 MG; Start 03/16/17 at 09:00 Hydralazine HCl (Apresoline) 10 mg Q6H PRN IV SBP>170; Start 03/15/17 at 17:30 Metoprolol Tartrate (Lopressor) 25 mg BID PO ; Start 03/16/17 at 09:00 Morphine Sulfate (morphine) Q4PCA PRN IV Pain Last administered on 03/17/17 00:42; Admin Dose 1 MG; Start 03/16/17 at 15:30 Docusate Sodium (Colace) 100 mg BID PO ; Start 03/17/17 at 21:00 Polyethylene Glycol (Miralax) 17 gm DAILY PRN PO CONSTIPATION; Start 03/17/17 at 15:30 CAMERON COOPER PA-C Mar 17, 2017 16:07
[2017-03-17] MEDS ORDERED: DEXTROSE 5%-LR 1,000 ML IV SCH ×2 (16:18→16:33)
[2017-03-17] MEDS: POLYETHYLENE GLYCOL 17 GM PACKET PO PRN (16:35)
[2017-03-17] MEDS: DOCUSATE SODIUM 100 MG CAP PO SCH (22:13)
[2017-03-17] MEDS: morphine 2 MG INJ IV PRN (22:14)
[2017-03-18] MEDS: OXYCODONE/ACETAMINOPHEN (5/325) TAB PO PRN ×3 (00:38→20:43)
[2017-03-18 00:52] VITALS: BP 108/59; RESP 18
[2017-03-18] MEDS: morphine 2 MG INJ IV PRN ×2 (02:17→06:43)
[2017-03-18 05:02] VITALS: BP 110/60; RESP 18
[2017-03-18 07:06] VITALS: BP 104/68; RESP 19
[2017-03-18 07:28] LABS: WHITE BLOOD COUNT 7.7 10^3/ul (4.8-10.8)
[2017-03-18 07:29] LABS: BASOPHILS % 0.5 % (0.0-2.0); EOSINOPHILS # 0.3 10^3/ul (0.0-0.5); EOSINOPHILS % 3.6 % (0.0-7.0); HEMATOCRIT 30.9 % (42.0-52.0); HEMOGLOBIN 10.4 g/dl (14.0-18.0); LYMPHOCYTES # 1.7 10^3/ul (0.8-2.9); LYMPHOCYTES % 22.2 % (15.0-51.0); MEAN CORPUSCULAR HEMOGLOBIN 30.7 pg (29.0-33.0); MEAN CORPUSCULAR HGB CONC 33.7 g/dl (32.0-37.0); MEAN CORPUSCULAR VOLUME 91.2 fl (82.0-101.0); MEAN PLATELET VOLUME 11.3 fl (7.4-10.4); MONOCYTE # 1.2 10^3/ul (0.3-0.9); MONOCYTES % 15.2 % (0.0-11.0); NEUTROPHILS % 58.1 % (39.0-77.0); PLATELET COUNT 181 10^3/UL (140-415); RED BLOOD COUNT 3.39 10^6/ul (4.70-6.10); RED CELL DISTRIBUTION WIDTH 13.5 % (11.5-14.5)
[2017-03-18 07:57] LABS: CREATININE 0.69 mg/dl (0.61-1.24); POTASSIUM 3.5 mmol/L (3.5-5.1)
[2017-03-18] MEDS: DOCUSATE SODIUM 100 MG CAP PO SCH ×2 (08:46→20:42)
[2017-03-18] MEDS: FAMOTIDINE 20 MG TAB PO SCH (08:46)
[2017-03-18] MEDS: METOPROLOL 25 MG TAB PO SCH ×2 (08:46→21:00)
[2017-03-18] MEDS: POLYETHYLENE GLYCOL 17 GM PACKET PO PRN (08:46)
[2017-03-18 09:11] LABS: CALCIUM 8.4 mg/dl (8.4-10.2)
[2017-03-18 11:27] VITALS: BP 108/68; RESP 20
--- NOTE | 2017-03-18 14:24 | PN ---
Date/Time of Note Date/Time of Note DATE: 03/18/17 TIME: 14:21 Assessment/Plan VTE Prophylaxis VTE Prophylaxis Intervention: other Lines/Catheters IV Catheter Type (from Nrsg): Peripheral IV Urinary Cath still in place: No Assessment/Plan Assessment/Plan -Lumbar spondylolisthesis, stenosis and cord compression at L3-L4, status post lumbar L3-4 laminectomy with interbody fusion and instrumentation by Dr. Vaughan. 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 for nausea. Continue to follow up surgical recommendation. - Hypertension. Patient is currently hypotensive. Continue to monitor blood pressure. Hydralazine p.r.n. -Paroxysmal atrial fibrillation. Currently is in a normal sinus rhythm. Continue to monitor. The patient was on Eliquis, which was held in advance for scheduled surgery. - Obesity with BMI of 46. -Weight management -Dietary consult Further recommendations based on clinical course. Plan of care discussed with Dr. Hogue. Subjective 24 Hr Interval Summary Free Text/Dictation No acute distress, feels better, lower back pain is much better, tolerates PT, afebrile . Discussed with the staff known new events reported overnight Respiratory: no complaints Cardiovascular: no complaints Gastrointestinal: no complaints Genitourinary: no complaints Musculoskeletal: back pain Skin: no complaints Neurologic: no complaints Exam/Review of Systems Vital Signs Vitals Vital Signs Date Time Temp Pulse Resp B/P Pulse Ox O2 Delivery O2 Flow Rate FiO2 03/18/17 11:27 98.1 82 20 108/68 95 03/18/17 07:25 Nasal Cannula 2.0 Intake and Output 03/17/17 03/17/17 03/18/17 15:00 23:00 07:00 Intake Total 1310 ml 940 ml Output Total 1975 ml 1410 ml Balance -665 ml -470 ml Exam Constitutional: alert, well developed Respiratory: clear to auscultation, normal air movement Cardiovascular: nl pulses, regular rate and rhythm Gastrointestinal: non-tender, soft Musculoskeletal: nl extremities to inspection Extremities: normal pulses Results Result Diagram: 03/18/17 0644 03/18/17 0644 Results 24 hrs Laboratory Tests Test 03/18/17 06:44 White Blood Count 7.7 Red Blood Count 3.39 L Hemoglobin 10.4 L Hematocrit 30.9 L Mean Corpuscular Volume 91.2 Mean Corpuscular Hemoglobin 30.7 Mean Corpuscular Hemoglobin Concent 33.7 Red Cell Distribution Width 13.5 Platelet Count 181 Mean Platelet Volume 11.3 H Neutrophils % 58.1 Lymphocytes % 22.2 Monocytes % 15.2 H Eosinophils % 3.6 Basophils % 0.5 Nucleated Red Blood Cells % 0.0 Neutrophils # (Manual) 4 Lymphocytes # 1.7 Monocytes # 1.2 H Eosinophils # 0.3 Basophils # 0.0 Nucleated Red Blood Cells # 0.0 Sodium Level 137 Potassium Level 3.5 Chloride Level 99 Carbon Dioxide Level 32 H Anion Gap 10 Blood Urea Nitrogen 6 L Creatinine 0.69 Glucose Level 99 Calcium Level 8.4 Medications Medications Current Medications Ondansetron HCl (Zofran Inj) 4 mg Q6H PRN IV NAUSEA AND/OR VOMITING; Start at 12:30 Acetaminophen (Tylenol Tab) 650 mg Q6H PRN PO PAIN AND OR ELEVATED TEMP; Start 03/15/17 at 12:30 Naloxone HCl (Narcan) 0.2 mg PRN PRN IV DECREASED REPIRATORY RATE; Start at 15:30 Oxycodone/ Acetaminophen (Percocet (5/ 325)) 1 tab Q4H PRN PO PAIN LEVEL 1-5 Last administered on 03/18/17 00:38; Admin Dose 1 TAB; Start 03/15/17 at 15:30 Oxycodone/ Acetaminophen (Percocet (5/ 325)) 2 tab Q4H PRN PO PAIN LEVEL 6-10 Last administered on 03/18/17 13:47; Admin Dose 2 TAB; Start 03/15/17 at 15:30 Ondansetron HCl (Zofran Inj) 4 mg Q6H PRN IV NAUSEA AND/OR VOMITING; Start at 15:30 Diphenhydramine HCl (Benadryl) 25 mg Q6H PRN IV ITCHING; Start 03/15/17 at 15: 30 Famotidine (Pepcid) 20 mg DAILY PO Last administered on 03/18/17 08:46; Admin Dose 20 MG; Start 03/16/17 at 09:00 Hydralazine HCl (Apresoline) 10 mg Q6H PRN IV SBP>170; Start 03/15/17 at 17:30 Metoprolol Tartrate (Lopressor) 25 mg BID PO ; Start 03/16/17 at 09:00 Docusate Sodium (Colace) 100 mg BID PO Last administered on 03/18/17 08:46; Admin Dose 100 MG; Start 03/17/17 at 21:00 Polyethylene Glycol (Miralax) 17 gm DAILY PRN PO CONSTIPATION Last administered on 03/18/17 08:46; Admin Dose 17 GM; Start 03/17/17 at 15:30 Morphine Sulfate (morphine) 2 mg Q4H PRN IV severe pain Last administered on 06:43; Admin Dose 2 MG; Start 03/17/17 at 16:30 STERLING MCFADDEN Mar 18, 2017 14:24
--- NOTE | 2017-03-18 15:13 | CONS ---
Date/Time of Note Date/Time of Note DATE: 03/18/17 TIME: 15:12 Assessment/Plan Assessment/Plan Additional Assessment/Plan seen/examined awake/alert/follows/moves all drain dced pt can go home pt may have allergy to plastic tape. may go home in 24hrs Consultation Date/Type/Reason Admit Date/Time Mar 15, 2017 at 09:42 Exam/Review of Systems Vital Signs Vitals Vital Signs Date Time Temp Pulse Resp B/P Pulse Ox O2 Delivery O2 Flow Rate FiO2 03/18/17 11:27 98.1 82 20 108/68 95 03/18/17 07:25 Nasal Cannula 2.0 Intake and Output 03/17/17 03/17/17 03/18/17 15:00 23:00 07:00 Intake Total 1310 ml 940 ml Output Total 1975 ml 1410 ml Balance -665 ml -470 ml Results Result Diagram: 03/18/17 0644 03/18/17 0644 Results 24 hrs Laboratory Tests Test 03/18/17 06:44 White Blood Count 7.7 Red Blood Count 3.39 L Hemoglobin 10.4 L Hematocrit 30.9 L Mean Corpuscular Volume 91.2 Mean Corpuscular Hemoglobin 30.7 Mean Corpuscular Hemoglobin Concent 33.7 Red Cell Distribution Width 13.5 Platelet Count 181 Mean Platelet Volume 11.3 H Neutrophils % 58.1 Lymphocytes % 22.2 Monocytes % 15.2 H Eosinophils % 3.6 Basophils % 0.5 Nucleated Red Blood Cells % 0.0 Neutrophils # (Manual) 4 Lymphocytes # 1.7 Monocytes # 1.2 H Eosinophils # 0.3 Basophils # 0.0 Nucleated Red Blood Cells # 0.0 Sodium Level 137 Potassium Level 3.5 Chloride Level 99 Carbon Dioxide Level 32 H Anion Gap 10 Blood Urea Nitrogen 6 L Creatinine 0.69 Glucose Level 99 Calcium Level 8.4 Medications Medications Current Medications Ondansetron HCl (Zofran Inj) 4 mg Q6H PRN IV NAUSEA AND/OR VOMITING; Start at 12:30 Acetaminophen (Tylenol Tab) 650 mg Q6H PRN PO PAIN AND OR ELEVATED TEMP; Start 03/15/17 at 12:30 Naloxone HCl (Narcan) 0.2 mg PRN PRN IV DECREASED REPIRATORY RATE; Start at 15:30 Oxycodone/ Acetaminophen (Percocet (5/ 325)) 1 tab Q4H PRN PO PAIN LEVEL 1-5 Last administered on 03/18/17 00:38; Admin Dose 1 TAB; Start 03/15/17 at 15:30 Oxycodone/ Acetaminophen (Percocet (5/ 325)) 2 tab Q4H PRN PO PAIN LEVEL 6-10 Last administered on 03/18/17 13:47; Admin Dose 2 TAB; Start 03/15/17 at 15:30 Ondansetron HCl (Zofran Inj) 4 mg Q6H PRN IV NAUSEA AND/OR VOMITING; Start at 15:30 Diphenhydramine HCl (Benadryl) 25 mg Q6H PRN IV ITCHING; Start 03/15/17 at 15: 30 Famotidine (Pepcid) 20 mg DAILY PO Last administered on 03/18/17 08:46; Admin Dose 20 MG; Start 03/16/17 at 09:00 Hydralazine HCl (Apresoline) 10 mg Q6H PRN IV SBP>170; Start 03/15/17 at 17:30 Metoprolol Tartrate (Lopressor) 25 mg BID PO ; Start 03/16/17 at 09:00 Docusate Sodium (Colace) 100 mg BID PO Last administered on 03/18/17 08:46; Admin Dose 100 MG; Start 03/17/17 at 21:00 Polyethylene Glycol (Miralax) 17 gm DAILY PRN PO CONSTIPATION Last administered on 03/18/17 08:46; Admin Dose 17 GM; Start 03/17/17 at 15:30 Morphine Sulfate (morphine) 2 mg Q4H PRN IV severe pain Last administered on 06:43; Admin Dose 2 MG; Start 03/17/17 at 16:30 CAMERON COOPER PA-C Mar 18, 2017 15:13
[2017-03-18 15:22] VITALS: BP 96/54; RESP 20
[2017-03-18 20:09] VITALS: BP 115/64; RESP 16
[2017-03-19 00:24] VITALS: BP 111/58; RESP 16
[2017-03-19 07:03] LABS: BASOPHILS % 0.6 % (0.0-2.0); EOSINOPHILS # 0.3 10^3/ul (0.0-0.5); HEMATOCRIT 30.8 % (42.0-52.0); HEMOGLOBIN 10.6 g/dl (14.0-18.0); LYMPHOCYTES # 1.4 10^3/ul (0.8-2.9); LYMPHOCYTES % 20.1 % (15.0-51.0); MEAN CORPUSCULAR HEMOGLOBIN 31.2 pg (29.0-33.0); MEAN CORPUSCULAR HGB CONC 34.4 g/dl (32.0-37.0); MEAN CORPUSCULAR VOLUME 90.6 fl (82.0-101.0); MEAN PLATELET VOLUME 11.3 fl (7.4-10.4); PLATELET COUNT 201 10^3/UL (140-415); RED CELL DISTRIBUTION WIDTH 13.1 % (11.5-14.5); WHITE BLOOD COUNT 6.8 10^3/ul (4.8-10.8)
[2017-03-19 07:25] VITALS: BP 125/68; RESP 16
[2017-03-19 07:38] LABS: CALCIUM 8.8 mg/dl (8.4-10.2); CREATININE 0.63 mg/dl (0.61-1.24); POTASSIUM 3.8 mmol/L (3.5-5.1)
[2017-03-19] MEDS: OXYCODONE/ACETAMINOPHEN (5/325) TAB PO PRN (08:45)
[2017-03-19] MEDS: FAMOTIDINE 20 MG TAB PO SCH (08:46)
[2017-03-19] MEDS: METOPROLOL 25 MG TAB PO SCH (08:46)
[2017-03-19] MEDS: DOCUSATE SODIUM 100 MG CAP PO SCH (08:46)
[2017-03-19] MEDS ORDERED: Oxycodone/Acetamin (5/325) PO (12:09)
--- NOTE | 2017-03-20 07:27 | DS ---
Date/Time of Note Date/Time of Note DATE: 03/20/17 TIME: 07: Discharge Summary Admission/Discharge Info Admit Date/Time Mar 15, 2017 at 09:42 Discharge Date/Time Mar 19, 2017 at 13:01 Patient Condition: Stable Hx of Present Illness The patient is a 62-year-old gentleman with history hypertension, atrial fibrillation, and history of diverticulitis. The patient was seen by Dr. Vaughan for lower back pain, which was radiating to the hips and lower extremities. Conservative management with epidural injection, physical therapy and pain management unfortunately failed. The patient was diagnosed with spinal stenosis of L3 and 4 and was brought to the hospital and underwent microdissection of L3 and 4, post lumbar laminectomy with interbody fusion and instrumentation of L3 and L4. Postoperatively the patient experienced moderate pain and patient will be admitted for further evaluation and management. Hospital Course -Lumbar spondylolisthesis, stenosis and cord compression at L3-L4, status post lumbar L3-4 laminectomy with interbody fusion and instrumentation by Dr. Vaughan. 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 for nausea. Continue to follow up surgical recommendation. - Hypertension. Patient is currently hypotensive. Continue to monitor blood pressure. Hydralazine p.r.n. -Paroxysmal atrial fibrillation. Currently is in a normal sinus rhythm. Continue to monitor. The patient was on Eliquis, which was held in advance for scheduled surgery. - Obesity with BMI of 46. Home Meds Active Scripts [Oxycodone/Acetamin (5/325)] 1 TAB TAB No Conflict Check, 2 TAB PO Q4H Y for PAIN LEVEL 6-10, #30 Prov:KELLEY SNIDERETLANA 03/19/17 Reported Medications Metoprolol Tartrate* (Lopressor*) 25 Mg Tab, 25 MG PO BID, #60 TAB 03/15/17 Losartan Potassium* (Losartan Potassium*) 100 Mg Tablet, 100 MG PO DAILY, TAB 03/15/17 Triamterene/Hctz* (Maxzide (37.5-25)*) 1 Each Tablet, 1 EACH PO DAILY, #30 TAB 03/15/17 Discontinued Reported Medications Ibuprofen* (Advil*) 200 Mg Capsule, 200 MG PO Q6H Y for PAIN, CAP 11/29/14 [Blood Pressure] No Conflict Check, PO DAILY 11/29/14 Follow-up Plan f/up with Dr Vaughan next week. Primary Care Provider Not On Staff Doctor Time spent on discharge: > 30 minutes BONNIE SNIDER Mar 20, 2017 07:27
== END 2017-03-19 13:01 | disposition home or self-care (01) | DRG 460 ==
LOC: REC 09:42 → TEL 20:39
PROVIDERS: ADMIT Neurological Surgery; ATTEND Internal Medicine
PROC: 0ST20ZZ Resection of Lumbar Vertebral Disc, Open Approach (ICD-10-PCS; principal; 2017-03-16)
PROC: 0SG007J Fusion of Lumbar Vertebral Joint with Autologous Tissue Substitute, Posterior Approach, Anterior Column, Open Approach (ICD-10-PCS; 2017-03-16)
DX: M43.16 Spondylolisthesis, lumbar region (principal); M51.06 Intervertebral disc disorders with myelopathy, lumbar region; Z68.42 Body mass index [BMI] 45.0-49.9, adult; I10 Essential (primary) hypertension; I48.0 Paroxysmal atrial fibrillation; E66.9 Obesity, unspecified; Z87.891 Personal history of nicotine dependence
CPT/HCPCS: 72110; 80048; 85025; 86850; 86900; 86901; 87086; 88300; 88304; 97116; 97162; 97530; C1713; C1762; J0690; J1885; J2175; J2270; J2405; J2710; J7121; J7999